=== PATIENT | male | born 1950 | race Caucasian/White ===

== ENCOUNTER 2018-02-26 07:27 | Emergency (ER) | payer MEDICARE, OTHER ==
[~2018-02-26] VITALS: Ht 177.8 cm; Wt 85.5 kg
[~2018-02-26 07:27] MED LIST: CEPHALEXIN500 M1 PO; LEVOTHYROXINE0.05 MG; NO HOME MEDICATIONS; NORCO 325 MG-51 TAB PO
[2018-02-26] MEDS ORDERED: BACTRIM DS 8001 TAB PO (07:36)
[2018-02-26] MEDS ORDERED: CLARITIN 1010 MG/TAB PO (07:37)
[2018-02-26] MEDS ORDERED: ASPIRIN 81M81 MG/TA2 PO (07:37)
[2018-02-26 08:23] VITALS: BP 168/92; PULSE 75; TEMP 97.7
== END 2018-02-26 08:23 | disposition home or self-care (01) ==
LOC: COL.ER 07:27
DX: L03.312 Cellulitis of back [any part except buttock and flank] (principal); I10 Essential (primary) hypertension; E03.9 Hypothyroidism, unspecified; Z79.82 Long term (current) use of aspirin
CPT/HCPCS: J0696

== ENCOUNTER 2018-06-11 09:35 | Emergency (ER) | payer MEDICARE, OTHER ==
[~2018-06-11] VITALS: Ht 177.8 cm; Wt 81.8 kg
[~2018-06-11 09:35] MED LIST changes: +ASPIRIN 81M81 MG/TA2 PO; +BACTRIM DS 8001 TAB PO; +CLARITIN 1010 MG/TAB PO
[2018-06-11 09:39] VITALS: BP 188/94; TEMP 98.4
[2018-06-11 09:54] LABS: COLLECTION METHOD RANDOM VOIDED
[2018-06-11 10:07] LABS: AMORPHOUS CRYSTAL Present /uL; PH 7 (5-8); SQUAMOUS EPITHELIAL None Seen /hpf; URINE APPEARANCE Hazy; URINE BACTERIA None Seen /hpf; URINE BILIRUBIN Negative (NEGATIVE); URINE BLOOD 1+ (NEGATIVE); URINE COLOR Yellow; URINE GLUCOSE Negative (NEGATIVE); URINE KETONE Trace (NEGATIVE); URINE LEUKOCYTE ESTERASE Negative (NEGATIVE); URINE NITRATE Negative (NEGATIVE); URINE PROTEIN(semi-quant) Negative (NEGATIVE); URINE RBC 20-50 /hpf; URINE UROBILINOGEN Negative (NEGATIVE)
[2018-06-11 10:25] LABS: BASO % 0.4 % (0.0-2.0); EOS % 0.2 % (0-4.0); GRAN # 6.5 (1.4-6.5); GRAN % 71.8 % (42.2-75.2); HEMATOCRIT 48.4 % (42.0-52.0); HEMOGLOBIN 16.9 g/dl (13.5-18.0); LYMPH # 1.7 (1.2-3.4); LYMPH % 18.4 % (20.0-51.0); MEAN CELL VOLUME 92 fl (80.0-100.0); MEAN CORPUSCULAR HEMOGLOBIN 32 pg (27.0-31.0); MEAN CORPUSCULAR HGB CONC 35 g/dl (33.0-37.0); MEAN PLATELET VOLUME 11.2 fl (7.4-10.4); MONO # 0.8 (0.1-0.6); MONO % 8.8 % (1.7-9.3); PLATELET COUNT 149 K/mm3 (130-400); RED BLOOD COUNT 5.26 M/mm3 (4.20-5.60); REDCELL DISTRIBUTION WIDTH-CV 12.3 % (11.5-14.5)
[2018-06-11] MEDS ORDERED: ZOFRAN ODT8 MG PO (10:46)
[2018-06-11] MEDS ORDERED: FLOMAX 0.40.4 MG/CAP PO (10:46)
[2018-06-11] MEDS ORDERED: PERCOCET 325 MG1 TA2 PO (10:46)
[2018-06-11 11:13] LABS: ALBUMIN 4.4 gm/dL (3.5-5.0); BILIRUBIN,TOTAL 0.8 mg/dL (0.0-1.0); CREATININE, serum 1.04 mg/dL (0.66-1.25); POTASSIUM 4.3 mmol/L (3.4-5.0); TOTAL PROTEIN 7.3 gm/dL (6.4-8.2)
[2018-06-11 11:50] VITALS: PULSE 88
== END 2018-06-11 11:50 | disposition home or self-care (01) ==
LOC: COL.ER 09:35
PROVIDERS: Emergency Medicine
DX: N13.2 Hydronephrosis with renal and ureteral calculous obstruction (principal); E03.9 Hypothyroidism, unspecified; Z79.82 Long term (current) use of aspirin
CPT/HCPCS: J2270; J2405; J7030

== ENCOUNTER 2018-06-12 11:59 | Day surgery (SDC) | payer MEDICARE, OTHER ==
[~2018-06-12] VITALS: Ht 177.8 cm; Wt 86.1 kg
[~2018-06-12 11:59] MED LIST changes: +FLOMAX 0.40.4 MG/CAP PO; +PERCOCET 325 MG1 TA2 PO; +ZOFRAN ODT8 MG PO
[2018-06-12 12:37] VITALS: BP 178/82; PULSE 94; TEMP 99.1
[2018-06-12 15:30] VITALS: BP 137/75; PULSE 91
[2018-06-12 15:45] VITALS: BP 144/80; PULSE 87
[2018-06-12 16:00] VITALS: BP 160/79; PULSE 85
[2018-06-12 16:15] VITALS: BP 146/74; PULSE 87
[2018-06-12 16:30] VITALS: BP 134/81; PULSE 91; TEMP 99.8
== END 2018-06-12 17:19 | disposition home or self-care (01) ==
LOC: SDCO 11:59
DX: N20.1 Calculus of ureter (principal); K58.9 Irritable bowel syndrome, unspecified; I10 Essential (primary) hypertension; Z79.82 Long term (current) use of aspirin; Z83.3 Family history of diabetes mellitus; Z80.42 Family history of malignant neoplasm of prostate; Z82.49 Family history of ischemic heart disease and other diseases of the circulatory system; Z84.1 Family history of disorders of kidney and ureter
CPT/HCPCS: C1758; C1769; C2617; J0690; J1100; J1885; J2704; J3010; J7120; Q9967

== ENCOUNTER 2019-06-29 03:22 | Emergency (ER) | payer MEDICARE, OTHER ==
[~2019-06-29] VITALS: Ht 177.8 cm; Wt 86.4 kg
[2019-06-29 03:25] VITALS: BP 146/84; TEMP 98.3
[2019-06-29 03:52] LABS: BASO # 0.1 (0.0-0.2); BASO % 0.5 % (0.0-2.0); EOS # 0.1 (0.0-0.7); EOS % 1.2 % (0-4.0); GRAN # 6.3 (1.4-6.5); GRAN % 56.5 % (42.2-75.2); HEMATOCRIT 48.4 % (42.0-52.0); HEMOGLOBIN 16.9 g/dl (13.5-18.0); LYMPH # 3.2 (1.2-3.4); MEAN CELL VOLUME 92 fl (80.0-100.0); MEAN CORPUSCULAR HEMOGLOBIN 32 pg (27.0-31.0); MEAN CORPUSCULAR HGB CONC 35 g/dl (33.0-37.0); MEAN PLATELET VOLUME 10.6 fl (7.4-10.4); MONO # 1.3 (0.1-0.6); MONO % 11.8 % (1.7-9.3); PLATELET COUNT 236 K/mm3 (130-400); RED BLOOD COUNT 5.24 M/mm3 (4.20-5.60); REDCELL DISTRIBUTION WIDTH-CV 11.6 % (11.5-14.5)
[2019-06-29] MEDS ORDERED: LEVAQUIN 750MG750 M1 PO (04:01)
[2019-06-29] MEDS ORDERED: CILOXAN .3% EY2.5 ML OU (04:01)
[2019-06-29 04:03] LABS: CALCIUM 8.9 mg/dL (8.4-10.2); CREATININE, serum 0.76 (0.66-1.25)
[2019-06-29 04:06] LABS: POTASSIUM 4.7 mmol/L (3.4-5.0)
[2019-06-29 04:10] VITALS: PULSE 99
== END 2019-06-29 04:10 | disposition home or self-care (01) ==
LOC: COL.ER 03:22
PROVIDERS: Physician Assistant
DX: J18.1 Lobar pneumonia, unspecified organism (principal); H10.9 Unspecified conjunctivitis; Z79.82 Long term (current) use of aspirin

== ENCOUNTER 2023-08-15 07:54 | Emergency (ER) | payer MEDICARE ==
[~2023-08-15] VITALS: Ht 177.8 cm; Wt 79.5 kg
[~2023-08-15 07:54] MED LIST changes: +CILOXAN .3% EY2.5 ML OU; +LEVAQUIN 750MG750 M1 PO
[2023-08-15 07:56] VITALS: TEMP 97.8
[2023-08-15] MEDS ORDERED: Ketorolac 15 MG/ML VIAL IV ONE (08:15)
[2023-08-15 08:18] LABS: COLLECTION METHOD CLEAN CATCH
[2023-08-15 08:28] LABS: URINE APPEARANCE Clear (CLEAR/HAZY); URINE BLOOD Negative (NEGATIVE); URINE COLOR Yellow (YELLOW); URINE GLUCOSE 2+ (NEGATIVE); URINE KETONE 3+ (NEGATIVE); URINE NITRATE Negative (NEGATIVE); URINE PROTEIN(semi-quant) Negative (NEGATIVE); URINE UROBILINOGEN 0.2 E.U/dL (0.2-1.0)
[2023-08-15 08:36] LABS: SQUAMOUS EPITHELIAL 0-2 /hpf (0-10)
[2023-08-15 08:39] LABS: BASO # 0.1 K/mm3 (0.0-0.2); BASO % 0.6 % (0.0-2.0); EOS % 0.1 % (0.0-4.0); GRAN # 5.8 K/mm3 (1.4-6.5); GRAN % 71.7 % (42.2-75.2); LYMPH # 1.5 K/mm3 (1.2-3.4); LYMPH % 18.8 % (20.0-51.0); MEAN CELL VOLUME 93 fl (80.0-100.0); MEAN CORPUSCULAR HGB CONC 34 g/dl (33.0-37.0); MEAN PLATELET VOLUME 11.5 fl (7.4-10.4); MONO # 0.7 K/mm3 (0.1-0.6); MONO % 8.1 % (1.7-9.3); PLATELET COUNT 229 K/mm3 (130-400); RED BLOOD COUNT 5.75 M/mm3 (4.20-5.60); REDCELL DISTRIBUTION WIDTH-CV 11.7 % (11.5-14.5)
[2023-08-15 08:47] LABS: HEMATOCRIT 53.3 % (42.0-52.0); HEMOGLOBIN 18.3 g/dl (13.5-18.0); MEAN CORPUSCULAR HEMOGLOBIN 32 pg (27-31)
[2023-08-15 08:56] LABS: ALBUMIN 4.2 gm/dL (3.4-4.8); CALCIUM 9.6 mg/dL (8.4-10.2); CREATININE, serum 1.06 mg/dL (0.72-1.25); POTASSIUM 3.9 mmol/L (3.5-4.5); TOTAL PROTEIN 7.8 gm/dL (6.2-8.1)
[2023-08-15] MEDS ORDERED: LR 1,000 ML IV ONE (09:45)
[2023-08-15 10:51] VITALS: BP 149/92; PULSE 92
== END 2023-08-15 10:55 | disposition home or self-care (01) ==
LOC: COL.ER 07:54
PROVIDERS: Emergency Medicine
DX: R10.10 Upper abdominal pain, unspecified (principal); M54.9 Dorsalgia, unspecified; Z87.442 Personal history of urinary calculi
CPT/HCPCS: J1885; J7120